=== PATIENT | female | born 1995 | race Caucasian/White ===

== ENCOUNTER 2017-02-13 17:42 | Emergency (ER) | payer MEDICAID ==
--- NOTE | 2017-02-13 18:16 | ED Physician Chart ---
Chief Complaint/HPI - Patient Information Date Seen:: 02/13/17 Time Seen:: 17:40 Chief Complaint:: Headaches History of Present Illness:: Onset x one week of intermittent, diffuse, throbbing Headaches with dysmenorrhea , menorrhagia, and increased bruising; No C/P, dyspnea, Abdominal Pain, A/N/V/D/ C, fever, chills, S/T, E/As, congestion, cough; pt states increased weakness and malaise with dizziness and vertigo; no syncope; no LOC, ALOC Allergies:: Allergies Allergy/AdvReac Type Severity Reaction Status Date / Time No Known Allergies Allergy Verified 02/13/17 17:50 Vitals:: Vital Signs - 8 hr 02/13/17 17:51 Temp 98.9 F HR 97 RR 18 BP 128/79 O2 Sat % 98 Historian:: Patient Review:: Nurse's Note Reviewed <Steve Giraldo - Last Filed: 02/13/17 19:39> - Patient Information Allergies:: Allergies Allergy/AdvReac Type Severity Reaction Status Date / Time No Known Allergies Allergy Verified 02/13/17 17:50 Vitals:: Vital Signs - 8 hr 02/13/17 02/13/17 17:51 20:01 Temp 98.9 F 97.8 F HR 97 RR 18 18 BP 128/79 O2 Sat % 98 98 <David Mena - Last Filed: 02/13/17 20:13> Review of Systems - Review of Systems General/Constitutional: Fever, Chills, No weight loss, Weakness, No diaphoresis , No edema, No loss of appetite Skin: No skin lesions, No rash, Bruising Head: Headache, Light headed Eyes: No loss of vision, No pain, No diplopia ENT: No earache, No nasal drainage, No sore throat, No tinnitus Neck: No neck pain, No swelling, No thyromegaly, No stiffness, No mass noted Cardio Vascular: No chest pain, No palpitations, No PND, No orthopnea, No edema Pulmonary: No SOB, No cough, No sputum, No wheezing GI: Nausea, Vomiting, Diarrhea, No pain, No melena, No hematochezia, No constipation, No hematemesis G/U: No dysuria, No frequency, No hematuria [employer]ice: Abnormal vaginal bleeding, No contraction Musculoskeletal: No bone or joint pain, No back pain, No muscle pain Endocrine: No polyuria, No polydipsia Psychiatric: No prior psych history, No depression, No anxiety, No suicidal ideation Hematopoietic: Bruising, No lymphadenopathy Allergic/Immuno: No urticaria, No angioedema Neurological: No syncope, No focal symptoms, Weakness, No paresthesia, Headache , No seizure, Dizziness, No confusion, No vertigo <Steve Giraldo - Last Filed: 02/13/17 19:39> Past Medical History - Past Medical History Past Medical History: Other (Anemia; Dysmenorrhea) Family History: HTN Social History: Non Smoker, No Alcohol, No Drug Use Surgical History: None Psychiatricy History: None Medication: Reviewed <Steve Giraldo Last Filed: 02/13/17 19:39> Family Medical History - Family Member Mother Ethnicity: Living Status: Still Living <Steve Giraldo Last Filed: 02/13/17 19:39> Physical Exam - Physical Examination General/Constitutional: Awake, Well-developed, well-nourished, Alert, No distress, GCS 15, Non-toxic appearing, Ambulatory Head: Atraumatic Eyes: Lids, conjuctiva normal, PERRL, EOMI Skin: Nl inspection, No rash, No skin lesions, No ecchymosis, Well hydrated, No lymphadenopathy ENMT: External ears, nose nl, Nasal exam nl, Lips, teeth, gums nl Neck: Nontender, Full ROM w/o pain, No JVD, No nuchal rigidity, No bruit, No mass, No stridor Respiratory: Nl effort/Exclusion, Clear to Auscultation, No Wheeze/Rhonchi/Rales Cardio Vascular: RRR, No murmur, gallop, rubs, NL S1 S2 GI: No tenderness/rebounding/guarding, No organomegaly, No hernia, Normal BS's, Nondistended, No mass/bruits, No McBurney tenderness : No CVA tenderness Extremities: No tenderness or effusion, Full ROM, normal strength in all extremities, No edema, Normal digits & nails Neuro/Psych: Alert/oriented, DTR's symmetric, Normal sensory exam, Normal motor strength, Judgement/insight normal, Mood normal, Normal gait, No focal deficits Misc: normal gait, Normal back, No paraspinal tenderness <Steve Giraldo - Last Filed: 02/13/17 19:39> Labs/Radiology/EKG Results - Lab Results Comments:: Unremarkable <Steve Giraldo - Last Filed: 02/13/17 19:39> - Lab Results Results: Laboratory Tests 02/13/17 02/13/17 02/13/17 18:25 18:25 18:25 WBC 9.9 RBC 4.08 Hgb 12.7 Hct 37.1 MCV 91.0 MCH 31.2 H MCHC Differential 34.3 RDW 12.3 Plt Count 246 MPV 8.1 Neutrophils % 55.9 Lymphocytes % 31.6 Monocytes % 9.2 Eosinophils % 2.3 Basophils % 1.0 PT 9.8 INR 0.94 PTT (Actin FS) 28.4 Sodium 135 L Potassium 3.9 Chloride 103 Carbon Dioxide 27.2 Anion Gap 8.7 BUN 15 Creatinine 0.8 Est GFR ( Amer) > 60.0 Est GFR (Non-Af Amer) > 60.0 BUN/Creatinine Ratio 18.8 Glucose 117 H Calcium 9.8 Serum , Qual 02/13/17 18:25 WBC RBC Hgb Hct MCV MCH MCHC Differential RDW Plt Count MPV Neutrophils % Lymphocytes % Monocytes % Eosinophils % Basophils % PT INR PTT (Actin FS) Sodium Potassium Chloride Carbon Dioxide Anion Gap BUN Creatinine Est GFR ( Amer) Est GFR (Non-Af Amer) BUN/Creatinine Ratio Glucose Calcium Serum , Qual NEGATIVE <David Mena - Last Filed: 02/13/17 20:13> ED Septic Shock - . Is Septic Shock (SBP<90, OR Lactate>4 mmol\L) present?: No - <6hrs of presentation: Vital Signs: Vital Signs - 8 hr 02/13/17 17:51 Temp 98.9 F HR 97 RR 18 BP 128/79 O2 Sat % 98 <Steve Giraldo - Last Filed: 02/13/17 19:39> - <6hrs of presentation: Vital Signs: Vital Signs - 8 hr 02/13/17 02/13/17 17:51 20:01 Temp 98.9 F 97.8 F HR 97 RR 18 18 BP 128/79 O2 Sat % 98 98 <David Mena - Last Filed: 02/13/17 20:13> Reassessment (Disposition) - Reassessment Reassessment:: CT head without contrast per radiology NAD Patient has cephalalgia. Pain is now controlled. Follow-up PCP 1-2 days. Return to ER precautions given. Patient understands and agrees with plan. Reassessment Condition:: Improved - Diagnosis Diagnosis:: Acute cephalalgia - Aftercare/Follow up Instructions Aftercare/Follow-Up Instructions:: Counseled pt regarding lab results/diagnosis & need follow up, Refer to Discharge Instructions - Patient Disposition Discharge/Transfer:: Home Time:: 20:12 Condition at Disposition:: Improved <David Mena - Last Filed: 02/13/17 20:13> ED Discharge Plan <Steve Giraldo - Last Filed: 02/13/17 19:39> <David Mena - Last Filed: 02/13/17 20:13> - Patient Disposition Admit/Discharge/Transfer: PT DISCHARGED HOME Condition at Disposition: Improved Instructions: Tension Headache, [id number]
[2017-02-13 18:39] LABS: % EOSINOPHILS 2.3 % (0.0-5.0); % LYMPHOCYTES 31.6 % (20.0-50.0); % MONOCYTES 9.2 % (2.0-10.0); % NEUTROPHILS 55.9 % (40.0-80.0); HEMATOCRIT 37.1 % (35.0-45.0); HEMOGLOBIN 12.7 gm/dL (11.7-15.5); MEAN CORPUSCULAR HEMOGLOBIN 31.2 pg (27.0-31.0); MEAN CORPUSCULAR HGB CONC 34.3 pg (28.0-36.0); MEAN PLATELET VOLUME 8.1 fl; NEUTROPHILE ABSOLUTE 5.6 Th/cmm (1.8-8.0); PLATELET COUNT 246 Th/cmm (150-400); RED BLOOD COUNT 4.08 Mil/cmm (3.80-5.10); RED CELL DISTRIBUTION WIDTH 12.3 % (11.5-20.0); WHITE BLOOD COUNT 9.9 Th/cmm (4.8-10.8)
[2017-02-13 18:57] LABS: ANION GAP 8.7 (7.0-16.0); BUN - UREA NITROGEN 15 mg/dL (7-25); BUN/CREATININE RATIO 18.8; CALCIUM SERUM 9.8 mg/dL (8.6-10.3); CARBON DIOXIDE 27.2 mEq/L (21.0-31.0); CHLORIDE 103 mEq/L (98-107); CREATININE - SERUM 0.8 mg/dL (0.6-1.2); GLUCOSE 117 mg/dL (70-105); POTASSIUM SERUM 3.9 mEq/L (3.5-5.1); SODIUM SERUM 135 mEq/L (136-145)
[2017-02-13 18:59] LABS: INR 0.94 (0.5-1.4); PROTHROMBIN TIME (TEST) 9.8 SECONDS (9.5-11.5)
--- NOTE | 2017-02-14 09:24 | Diagnostic Imaging Report ---
Head CT without intravenous contrast Indication: Headache Comparison: None Technique: Axial images were obtained from the vertex to the skull base without IV contrast. Coronal reconstructions were made. Total DLP: 602, [id number] FINDINGS: Images of the brain obtained without contrast demonstrate no acute hemorrhage. No mass lesions identified. The ventricles and basal cisterns are patent. The miles-white matter differentiation is preserved. There is no mass effect or midline shift. No skull fractures identified. No soft tissue swelling. The paranasal sinuses are clear. IMPRESSION: No acute intracranial abnormality.
== END 2017-02-13 20:22 | disposition home or self-care (01) ==
LOC: ER 17:42
DX: R51 Headache (principal); N94.6 Dysmenorrhea, unspecified; N92.0 Excessive and frequent menstruation with regular cycle; D64.9 Anemia, unspecified
CPT/HCPCS: 36415-UA; 70450-TC; 80048-TC; 81025-TC; 85025-TC; 85610-TC; 85730-TC